=== PATIENT | female | born 1965 | race Caucasian/White ===

== ENCOUNTER 2019-08-13 10:16 | Emergency (ER) | payer MEDICAID ==
[~2019-08-13] VITALS: Ht 165.1 cm; Wt 67.0 kg
[~2019-08-13 10:16] MED LIST: FERR325T18 PO; IBUP-1902 PO; LITHIUM; LORA-446 PO; MULT-750 PO; OLAN5TAB9 PO; POLY17PO5 PO; RESPIRADOL; TRAMADOL; [UNRECOGNIZED DRUG - OTHER]
--- NOTE | 2019-08-13 10:54 | NUR ---
PT AMBULATORY TO ROOM 4 W/ C/O BEING TOLD TO TAKE MIRALAX BUT STATES SHE WON'T DRINK WATER. DENIES N/V. LAST BM TODAY. NO C/O ABD PAIN. PT RESTING ON GURNEY. NADN. VSS. HR NOTED TO BE 119.
[2019-08-13] MEDS ORDERED: SODIUM CHLORIDE FLUSH 10ML SYR IVF ONE (11:30)
[2019-08-13] MEDS ORDERED: SODIUM CHLORIDE 0.9% 1,000ML IVBOLUS ONE (11:30)
--- NOTE | 2019-08-13 11:37 | NUR ---
PT RESTING ON GURNEY. NADN. CRUZ.
[2019-08-13 11:44] LABS: BASOPHILS # (AUTO) 0.05 x10^3/uL (0-0.1); BASOPHILS % (AUTO) 1 % (0-1); EOSINOPHILS # (AUTO) 0.01 x10^3/uL (0-0.4); EOSINOPHILS % (AUTO) 0 % (1-7); LYMPHOCYTES # (AUTO) 1.56 x10^3/uL (1-3.4); LYMPHOCYTES % (AUTO) 21 % (22-44); MD NO; MEAN CORPUSCULAR HEMOGLOBIN 25.5 pg (27.0-34.8); MEAN CORPUSCULAR HGB CONC 31.6 g/dL (32.4-35.8); MEAN CORPUSCULAR VOLUME 80.8 fL (80-100); MEAN PLATELET VOLUME 6.8 fL (7.4-10.4); MONOCYTES # (AUTO) 0.48 x10^3/uL (0.2-0.8); MONOCYTES % (AUTO) 6 % (2-9); NEUTROPHILS # (AUTO) 5.45 x10^3/uL (1.8-6.8); NEUTROPHILS % (AUTO) 72 % (42-75); PLATELET COUNT 417 x10^3/uL (130-400); RED BLOOD COUNT 4.88 x10^6/uL (3.82-5.3); RED CELL DISTRIBUTION WIDTH 15.2 % (9.6-15.2)
[2019-08-13 11:53] LABS: INTERNATIONAL NORMALIZED RATIO 1.02 (0.93-1.1); PROTHROMBIN TIME 10.7 Seconds (9.6-11.5)
[2019-08-13 11:57] LABS: ALANINE AMINOTRANSFERASE 28 U/L (12-78); ALBUMIN 3.8 g/dL (3.4-5.0); ANION GAP 9 mmol/L (5-15); CALCIUM 9.5 mg/dL (8.5-10.1); CHLORIDE 104 mmol/L (98-107); CREATININE 0.69 mg/dL (0.55-1.02); MICROSCOPIC INDICATED
[2019-08-13 11:59] LABS: ALKALINE PHOSPHATASE 108 U/L (45-117); TOTAL PROTEIN 8.2 g/dL (6.4-8.2)
[2019-08-13 12:08] LABS: CULTURE INDICATED? YES
[2019-08-13 12:24] VITALS: BP 160/93
--- NOTE | 2019-08-13 12:24 | NUR ---
PT CHART REVIEWED AND PLACED FOR RECHECK.
--- NOTE | 2019-08-13 12:24 | NUR ---
PT RESTING ON GURNEY. NADN. CRUZ.
== END 2019-08-13 12:59 | disposition home or self-care (01) ==
LOC: ED 10:38
DX: R10.84 Generalized abdominal pain (principal)
CPT/HCPCS: 36415; 74021; 80053; 81001; 83605; 83690; 85025; 85610; 87086; 99284; J7030

== ENCOUNTER 2019-09-07 09:39 | Emergency (ER) | payer MEDICAID ==
[~2019-09-07] VITALS: Ht 165.1 cm; Wt 75.0 kg
--- NOTE | 2019-09-07 09:58 | NUR ---
PT BIBA FOR C/O CONSTIPATION, LBM PER EMS WAS 4-5 DAYS AGO, HOWEVER PT IS REPORTING TO EDPA THAT LMB WAS YESTERDAY. PT DENIES PAIN AT THIS TIME. PT REPORTS EMESIS X 1 A FEW DAYS AGO, HOWEVER NO N/V AT THIS TIME. ABD IS SOFT, NON-DISTENDED, BOWEL SOUNDS PRESENT (NORMOACTIVE). PT A&OX4, RESPS EVEN AND UNLABORED, CALM AND COOPERATIVE. EDPA MECHELLE AT BEDSIDE FOR INITIAL ASSESSMENT.
--- NOTE | 2019-09-07 10:19 | NUR ---
PT IN RADIOLOGY AT THIS TIME.
[2019-09-07 10:46] VITALS: BP 142/88
--- NOTE | 2019-09-07 10:47 | NUR ---
PT INSTRUCTED TO PROVIDE CLEAN CATCH UA, ATTEMPTED BUT WAS UNSUCCESSFUL WITH VOIDING IN CUP IN BATHROOM.
[2019-09-07 10:48] LABS: BASOPHILS # (AUTO) 0.05 x10^3/uL (0-0.1); BASOPHILS % (AUTO) 1 % (0-1); EOSINOPHILS # (AUTO) 0.03 x10^3/uL (0-0.4); EOSINOPHILS % (AUTO) 1 % (1-7); LYMPHOCYTES # (AUTO) 1.44 x10^3/uL (1-3.4); LYMPHOCYTES % (AUTO) 32 % (22-44); MD NO; MEAN CORPUSCULAR HEMOGLOBIN 25.4 pg (27.0-34.8); MEAN CORPUSCULAR HGB CONC 31.8 g/dL (32.4-35.8); MEAN CORPUSCULAR VOLUME 79.7 fL (80-100); MONOCYTES # (AUTO) 0.44 x10^3/uL (0.2-0.8); MONOCYTES % (AUTO) 10 % (2-9); NEUTROPHILS # (AUTO) 2.57 x10^3/uL (1.8-6.8); NEUTROPHILS % (AUTO) 57 % (42-75); PLATELET COUNT 327 x10^3/uL (130-400); RED BLOOD COUNT 5.29 x10^6/uL (3.82-5.3); RED CELL DISTRIBUTION WIDTH 16.1 % (9.6-15.2)
[2019-09-07 11:04] LABS: ALBUMIN 3.4 g/dL (3.4-5.0); ANION GAP 8 mmol/L (5-15); CALCIUM 9.1 mg/dL (8.5-10.1); CHLORIDE 106 mmol/L (98-107)
[2019-09-07 11:08] LABS: ALANINE AMINOTRANSFERASE 26 U/L (12-78); ALKALINE PHOSPHATASE 98 U/L (45-117); BILIRUBIN,TOTAL 0.7 mg/dL (0.2-1.0); CREATININE 0.73 mg/dL (0.55-1.02); TOTAL PROTEIN 7.3 g/dL (6.4-8.2)
--- NOTE | 2019-09-07 11:12 | NUR ---
REPORT TO BREAK BÁRBARA RAPP. KHRIS MIN NOTIFIED PT WAS UNABLE TO PROVIDE CLEAN CATCH UA.
--- NOTE | 2019-09-07 11:22 | NUR ---
BREAK RN: PT LAYING ON GURNEY AWAKE & COMFORTABLE, NAD, AWAITING URINE SAMPLE/UA CUP AT BS- PA IMANI AWARE, COMFORT MEASURES PROVIDED, CALL LIGHT WITHIN REACH.
--- NOTE | 2019-09-07 11:39 | NUR ---
Patient given discharge instructions and they have confirmed that they understand the instructions. Patient ambulatory with steady gait.
== END 2019-09-07 11:40 | disposition home or self-care (01) ==
LOC: ED 11:30
DX: K59.00 Constipation, unspecified (principal)
CPT/HCPCS: 36415; 74021; 80053; 85025; 99284

== ENCOUNTER 2020-12-07 00:16 | Inpatient (IN) | payer MEDICAID ==
[~2020-12-07] VITALS: Ht 165.1 cm; Wt 70.4 kg
[~2020-12-07 00:16] MED LIST changes: +MULT-482 PO; -MULT-750 PO
[2020-12-07] MEDS ORDERED: ONDANSETRON ODT 4 MG PO PRN (00:30)
[2020-12-07] MEDS ORDERED: POLYETHYLENE GLYCOL 17 GM PACKET PO PRN (00:30)
[2020-12-07] MEDS ORDERED: ACETAMINOPHEN 325 MG TABLET PO PRN (00:30)
[2020-12-07] MEDS ORDERED: DOCUSATE 100 MG CAPSULE PO PRN (00:30)
[2020-12-07] MEDS ORDERED: HALOPERIDOL 5 MG/ML IM PRN (01:00)
[2020-12-07] MEDS ORDERED: LORazepam 2 MG/ML, 1ML IM PRN (01:00)
[2020-12-07] MEDS ORDERED: DIPHENHYDRAMINE 50 MG/ML, 1ML IM ONE (01:00)
[2020-12-07 02:59] VITALS: BP 122/61
[2020-12-07] MEDS ORDERED: PLEASE ENTER HEIGHT AND WEIGHT MC SCH (03:30)
[2020-12-07] MEDS ORDERED: PALI156D IM (04:42)
[2020-12-07] MEDS ORDERED: DIPHENHYDRAMINE 50 MG/ML, 1ML IM PRN (07:30)
[2020-12-07 07:32] VITALS: BP 152/88
[2020-12-07] MEDS ORDERED: PALI234D IM (09:23)
[2020-12-07] MEDS ORDERED: PALIPERIDONE PALMITATE 234 MG/1.5 ML IM SCH (11:00)
[2020-12-07] MEDS ORDERED: PALIPERIDONE PALMITATE 156 MG/ML IM ONE (11:00)
[2020-12-07 17:26] LABS: ANION GAP 6 mmol/L (5-15); CALCIUM 8.3 mg/dL (8.5-10.1); CHLORIDE 109 mmol/L (98-107); CREATININE 0.51 mg/dL (0.55-1.02)
[2020-12-07 19:10] VITALS: BP 134/75
[2020-12-08 06:40] LABS: CHOL/HDL RATIO 2.3
[2020-12-08 07:04] VITALS: BP 129/83
[2020-12-08] MEDS: FERROUS GLUCONATE 324 MG TABLET PO SCH ×2 (08:16→17:38)
[2020-12-08] MEDS: LORazepam 1MG TABLET PO PRN (08:41)
[2020-12-08] MEDS: HALOPERIDOL 5 MG TABLET PO PRN (08:56)
[2020-12-08] MEDS: DIPHENHYDRAMINE 50 MG CAPSULE PO PRN (08:56)
[2020-12-08 13:03] LABS: OCCULT BLOOD POSITIVE (NEGATIVE)
[2020-12-08 15:06] VITALS: BP 110/70
[2020-12-08 19:36] VITALS: BP 149/85
[2020-12-09 07:03] LABS: BASOPHILS % (AUTO) 1 % (0-1); EOSINOPHILS % (AUTO) 2 % (1-7); LYMPHOCYTES % (AUTO) 29 % (22-44); MEAN CORPUSCULAR HEMOGLOBIN 19.7 pg (27.0-34.8); MEAN CORPUSCULAR HGB CONC 30.4 g/dL (32.4-35.8); MEAN PLATELET VOLUME 6.1 fL (7.4-10.4); MONOCYTES % (AUTO) 10 % (2-9); NEUTROPHILS % (AUTO) 58 % (42-75); PLATELET COUNT 369 x10^3/uL (130-400); RED BLOOD COUNT 3.99 x10^6/uL (3.82-5.3); RED CELL DISTRIBUTION WIDTH 19.5 % (9.6-15.2)
[2020-12-09 07:13] LABS: CALCIUM 8.1 mg/dL (8.5-10.1); CREATININE 0.59 mg/dL (0.55-1.02)
[2020-12-09 07:18] LABS: ANION GAP 6 mmol/L (5-15); CHLORIDE 107 mmol/L (98-107)
[2020-12-09 07:19] LABS: ANISOCYTOSIS 2+; MD MORPH REVIEW ONLY; MICROCYTOSIS 2+
[2020-12-09 07:20] LABS: OVALOCYTES 1+; POLYCHROMASIA 1+; TEAR DROPS 1+
[2020-12-09 07:23] LABS: <PLATELET ESTIMATE> INCREASED; <PLT MORPHOLOGY> NORMAL PLT MORPH
[2020-12-09] MEDS: FERROUS GLUCONATE 324 MG TABLET PO SCH ×2 (07:37→17:26)
[2020-12-09 07:41] VITALS: BP 99/66
[2020-12-09 08:10] VITALS: BP 124/88
[2020-12-09] MEDS: DIPHENHYDRAMINE 50 MG CAPSULE PO PRN (13:31)
[2020-12-09] MEDS: LORazepam 1MG TABLET PO PRN ×2 (13:31→20:26)
[2020-12-09] MEDS ORDERED: MOVIPREP POWDER 1 PREP KIT PO ONE (17:30)
[2020-12-09 19:43] VITALS: BP 122/83
[2020-12-10] MEDS: HALOPERIDOL 5 MG TABLET PO PRN (02:44)
[2020-12-10 07:31] VITALS: BP 117/73
[2020-12-10] MEDS: FERROUS GLUCONATE 324 MG TABLET PO SCH (08:50)
[2020-12-10] MEDS ORDERED: FERR324T23 PO (12:56)
== END 2020-12-10 13:51 | disposition home or self-care (01) | DRG 750 ==
LOC: 3E 02:47
PROVIDERS: ADMIT Psychiatry & Neurology Psychosomatic Medicine; ATTEND Psychiatry & Neurology Psychosomatic Medicine
DX: F25.0 Schizoaffective disorder, bipolar type (principal); D50.9 Iron deficiency anemia, unspecified; F17.210 Nicotine dependence, cigarettes, uncomplicated; F41.9 Anxiety disorder, unspecified; G89.29 Other chronic pain
CPT/HCPCS: 36415; 71045; 80048; 80061; 82272; 82728; 83540; 83550; 84466; 85014; 85018; 85025; 93005; J1200; J1630; J2060; J2426

== ENCOUNTER 2021-05-01 10:02 | Observation (INO) | payer MEDICAID ==
[~2021-05-01] VITALS: Ht 165.1 cm; Wt 85.5 kg
[~2021-05-01 10:02] MED LIST changes: +FERR324T23 PO; +OLAN5TAB69 PO; -OLAN5TAB9 PO; +PALI156D IM; +PALI234D IM
--- NOTE | 2021-05-01 10:15 | NUR ---
[facility] SODIUM THIS AM OF 122. PT WHEELCHAIR BOUND AT BASELINE BUT ABLE TO AMBULATE A FEW STEPS WITH ASSISTANCE. PT PLACED ON CARDIAC, NIBP, AND O2 MONITORING. BEDSIDE GLUCOSE PERFORMED.
[2021-05-01] MEDS ORDERED: SODIUM CHLORIDE FLUSH 10ML SYR IVF ONE (10:30)
[2021-05-01 10:47] LABS: MICROSCOPIC AUTO
[2021-05-01 11:08] LABS: BASOPHILS % (AUTO) 1 % (0-1); EOSINOPHILS % (AUTO) 1 % (1-7); LYMPHOCYTES % (AUTO) 19 % (22-44); MEAN CORPUSCULAR HEMOGLOBIN 19.7 pg (27.0-34.8); MEAN CORPUSCULAR HGB CONC 31.5 g/dL (32.4-35.8); MEAN PLATELET VOLUME 5.6 fL (7.4-10.4); MONOCYTES % (AUTO) 8 % (2-9); NEUTROPHILS % (AUTO) 72 % (42-75); PLATELET COUNT 402 x10^3/uL (130-400); RED BLOOD COUNT 4.76 x10^6/uL (3.82-5.3)
[2021-05-01 11:18] LABS: ALANINE AMINOTRANSFERASE 16 U/L (12-78); ALBUMIN 3.4 g/dL (3.4-5.0); ANION GAP 9 mmol/L (5-15); CALCIUM 9.7 mg/dL (8.5-10.1); CHLORIDE 93 mmol/L (98-107)
[2021-05-01 11:21] LABS: ALKALINE PHOSPHATASE 114 U/L (45-117); BILIRUBIN,TOTAL 0.3 mg/dL (0.2-1.0); CREATININE 0.47 mg/dL (0.55-1.02); TOTAL PROTEIN 7.1 g/dL (6.4-8.2)
[2021-05-01 11:42] LABS: ANISOCYTOSIS 2+; HYPOCHROMIA 1+; MICROCYTOSIS 2+; OVALOCYTES 1+; POLYCHROMASIA 1+; TEAR DROPS 1+
[2021-05-01 11:43] LABS: <PLATELET ESTIMATE> INCREASED; <PLT MORPHOLOGY> NORMAL PLT MORPH
--- NOTE | 2021-05-01 11:47 | NUR ---
TASK RN: JOHN PLACED THEM MEDICATED PER HARRIET ARZATE AT 100/HR ON PUMP
[2021-05-01] MEDS ORDERED: SODIUM CHLORIDE 0.9% 1,000 ML IV SCH (12:00)
--- NOTE | 2021-05-01 13:25 | NUR ---
OPT RESTING COMFORTABLY IN BED. PT AWARE OF POC AT THIS TIME. AWAITING ADMITTING ORDERS.
[2021-05-01] MEDS ORDERED: MELATONIN 5 MG TABLET PO PRN (15:00)
[2021-05-01] MEDS ORDERED: BACLOFEN 10 MG TABLET PO PRN (15:00)
[2021-05-01] MEDS ORDERED: ACETAMINOPHEN 325 MG TABLET PO PRN (15:00)
[2021-05-01] MEDS ORDERED: POLYETHYLENE GLYCOL 17 GM PACKET PO PRN (15:00)
[2021-05-01] MEDS ORDERED: ONDANSETRON ODT 4 MG PO PRN (15:00)
[2021-05-01] MEDS ORDERED: ENOXAPARIN 40 MG/0.4 ML SQ SCH (15:00)
[2021-05-01] MEDS ORDERED: DOCUSATE 100 MG CAPSULE PO PRN (15:00)
[2021-05-01 16:18] VITALS: BP 141/85
[2021-05-01] MEDS: FERROUS GLUCONATE 324 MG TABLET PO SCH (16:41)
[2021-05-01] MEDS ORDERED: OXCA600T10 PO (17:04)
[2021-05-01] MEDS ORDERED: FAMO-79 PO (17:04)
[2021-05-01] MEDS ORDERED: ONDA4TAB7 PO (17:04)
[2021-05-01] MEDS ORDERED: CALC300T5 PO (17:04)
[2021-05-01] MEDS ORDERED: RISP2TAB11 PO (17:04)
[2021-05-01] MEDS ORDERED: FERR324T5 PO (17:04)
[2021-05-01] MEDS ORDERED: POLY510P31 PO (17:04)
[2021-05-01 19:28] VITALS: BP 117/75
[2021-05-01] MEDS: SODIUM CHLORIDE 0.9% 1,000 ML IV SCH (21:04)
[2021-05-01] MEDS: SODIUM CHLORIDE FLUSH 10ML SYR IVF SCH (21:04)
[2021-05-02 00:58] VITALS: BP 105/66
[2021-05-02 05:48] LABS: BASOPHILS % (AUTO) 0 % (0-1); EOSINOPHILS % (AUTO) 1 % (1-7); LYMPHOCYTES % (AUTO) 9 % (22-44); MEAN CORPUSCULAR HEMOGLOBIN 20.2 pg (27.0-34.8); MEAN CORPUSCULAR HGB CONC 31.6 g/dL (32.4-35.8); MEAN PLATELET VOLUME 8.2 fL (7.4-10.4); MONOCYTES % (AUTO) 9 % (2-9); NEUTROPHILS % (AUTO) 82 % (42-75); PLATELET COUNT 403 x10^3/uL (130-400); RED BLOOD COUNT 4.77 x10^6/uL (3.82-5.3); RED CELL DISTRIBUTION WIDTH 26.2 % (9.6-15.2)
[2021-05-02 06:02] LABS: CHLORIDE 103 mmol/L (98-107)
[2021-05-02 06:27] LABS: ANION GAP 8 mmol/L (5-15); CALCIUM 8.8 mg/dL (8.5-10.1); CREATININE 0.51 mg/dL (0.55-1.02)
[2021-05-02 07:00] LABS: ANISOCYTOSIS 2+; HYPOCHROMIA 1+; MICROCYTOSIS 1+
[2021-05-02 07:01] LABS: <PLATELET ESTIMATE> INCREASED; <PLT MORPHOLOGY> NORMAL PLT MORPH; OVALOCYTES 2+
[2021-05-02 07:06] VITALS: BP 107/69
[2021-05-02] MEDS: SODIUM CHLORIDE 0.9% 1,000 ML IV SCH (08:00)
[2021-05-02] MEDS: SODIUM CHLORIDE FLUSH 10ML SYR IVF SCH (09:00)
[2021-05-02] MEDS: FERROUS GLUCONATE 324 MG TABLET PO SCH (09:03)
== END 2021-05-02 11:30 | disposition home or self-care (01) ==
LOC: ED 10:54 → INTOOBSV 11:40 → EDIP 11:40 → 4EST 15:37
PROVIDERS: ADMIT Internal Medicine; ATTEND Hospitalist
DX: E87.1 Hypo-osmolality and hyponatremia (principal); R19.7 Diarrhea, unspecified; D64.9 Anemia, unspecified; G93.40 Encephalopathy, unspecified; F31.9 Bipolar disorder, unspecified; F20.9 Schizophrenia, unspecified; Z79.899 Other long term (current) drug therapy
CPT/HCPCS: 36415; 80048; 80053; 81001; 82962; 83735; 84443; 85025; 87086; 96360; 96361; 96372; 97162; 99284; G0378; J1650; J7030

== ENCOUNTER 2021-05-06 23:51 | Inpatient (IN) | payer MEDICAID ==
[~2021-05-06] VITALS: Ht 162.6 cm; Wt 71.2 kg
[~2021-05-06 23:51] MED LIST changes: +CALC300T5 PO; +FAMO-79 PO; +FERR324T5 PO; +ONDA4TAB7 PO; +OXCA600T10 PO; +POLY510P31 PO; +RISP2TAB11 PO
[2021-05-07] MEDS ORDERED: ONDANSETRON 2MG/ML, 2ML ONE (00:28)
[2021-05-07] MEDS ORDERED: PROMETHAZINE 25 MG/ML, 1ML ONE (00:28)
[2021-05-07] MEDS ORDERED: ONDANSETRON 2MG/ML, 2ML IVPush ONE (00:30)
[2021-05-07] MEDS ORDERED: SODIUM CHLORIDE FLUSH 10ML SYR IVF ONE (00:30)
[2021-05-07] MEDS ORDERED: PROMETHAZINE 25 MG/ML, 1ML IM ONE (00:30)
[2021-05-07] MEDS ORDERED: SODIUM CHLORIDE 0.9% 1,000ML IVBOLUS ONE (00:30)
--- NOTE | 2021-05-07 00:34 | NUR ---
PIV PLACED, MEDS GIVEN PER ORDER, FLUIDS INFUSING. PT TOLERATING WELL, NADN.
[2021-05-07 01:03] LABS: MEAN CORPUSCULAR HEMOGLOBIN 20.5 pg (27.0-34.8); MEAN CORPUSCULAR HGB CONC 32.3 g/dL (32.4-35.8); MEAN PLATELET VOLUME 8.1 fL (7.4-10.4); PLATELET COUNT 266 x10^3/uL (130-400); RED BLOOD COUNT 4.11 x10^6/uL (3.82-5.3); RED CELL DISTRIBUTION WIDTH 26.5 % (9.6-15.2)
[2021-05-07 01:04] LABS: ALBUMIN 2.4 g/dL (3.4-5.0); CALCIUM 7.8 mg/dL (8.5-10.1); CHLORIDE 84 mmol/L (98-107)
[2021-05-07 01:15] LABS: ANION GAP 11 mmol/L (5-15)
[2021-05-07 01:18] LABS: BILIRUBIN,TOTAL 0.7 mg/dL (0.2-1.0); CREATININE 0.48 mg/dL (0.55-1.02)
[2021-05-07 01:19] LABS: ALANINE AMINOTRANSFERASE 14 U/L (12-78); ALKALINE PHOSPHATASE 91 U/L (45-117); TOTAL PROTEIN 6.2 g/dL (6.4-8.2); TROPONIN I < 0.015 ng/mL (0.000-0.045)
[2021-05-07 01:26] LABS: ACANTHOCYTES 1+; ANISOCYTOSIS 2+; BAND#(MANUAL) 1.54 x10^3/uL; BANDS%(MANUAL) 20 % (0-7); LYMPH#(MANUAL) 0.31 x10^3/uL (1-3.4); LYMPHS% (MANUAL) 4 % (22-44); MONOS#(MANUAL) 0.39 x10^3/uL (0.3-2.7); MONOS% (MANUAL) 5 % (2-9); OVALOCYTES 2+; SEG#(MANUAL) 5.47 x10^3/uL (1.8-6.8); SEGS% (MANUAL) 71 % (42-75)
[2021-05-07 01:27] LABS: HYPOCHROMIA 2+; MICROCYTOSIS 2+; PMNS WITH VACUOLES 1+
[2021-05-07 01:28] LABS: <PLATELET ESTIMATE> ADEQUATE; <PLT MORPHOLOGY> NORMAL PLT MORPH; TEAR DROPS 1+
[2021-05-07] MEDS: SODIUM CHLORIDE 0.9% 1,000 ML IV ONE ×2 (01:30→03:22)
--- NOTE | 2021-05-07 01:34 | NUR ---
[facility] at bedside for eval
--- NOTE | 2021-05-07 01:34 | NUR ---
MD Brown aware of hyponatremia, orders received. pt updated with poc to admit
[2021-05-07] MEDS ORDERED: LABETALOL 5MG/ML, 20ML IVPush PRN (02:00)
[2021-05-07] MEDS ORDERED: ACETAMINOPHEN 325 MG TABLET PO PRN (02:00)
[2021-05-07] MEDS ORDERED: SODIUM CHLORIDE 3% 500 ML IV SCH ×4 (02:00→04:30)
[2021-05-07] MEDS ORDERED: POLYETHYLENE GLYCOL 17 GM PACKET PO PRN (02:00)
[2021-05-07] MEDS ORDERED: ONDANSETRON 2MG/ML, 2ML IVPush PRN (02:00)
[2021-05-07] MEDS ORDERED: MELATONIN 5 MG TABLET PO PRN (02:00)
[2021-05-07] MEDS ORDERED: OXYcodone IR 5MG TABLET PO PRN (02:00)
[2021-05-07] MEDS ORDERED: CEFTRIAXONE 1,000 MG in DEXTROSE 5% 50 ML IVPB ONE (02:00)
[2021-05-07] MEDS ORDERED: FUROSEMIDE 20 MG/2 ML IV ONE ×2 (02:00→06:00)
[2021-05-07] MEDS ORDERED: FUROSEMIDE 20 MG/2 ML ONE (02:05)
--- NOTE | 2021-05-07 02:20 | NUR ---
admit orders received, meds given per order, fluids infusing. vss, all monitors attached, nsr.
[2021-05-07 03:16] LABS: MEAN CORPUSCULAR HEMOGLOBIN 20.2 pg (27.0-34.8); MEAN PLATELET VOLUME 8.2 fL (7.4-10.4); PLATELET COUNT 293 x10^3/uL (130-400); RED BLOOD COUNT 4.92 x10^6/uL (3.82-5.3); RED CELL DISTRIBUTION WIDTH 27.2 % (9.6-15.2)
[2021-05-07] MEDS ORDERED: ENOXAPARIN 40 MG/0.4 ML ONE (03:16)
[2021-05-07] MEDS: ENOXAPARIN 40 MG/0.4 ML SQ SCH (03:22)
[2021-05-07 04:12] LABS: ANISOCYTOSIS 2+; BAND#(MANUAL) 1.57 x10^3/uL; BANDS%(MANUAL) 18 % (0-7); HYPOCHROMIA 1+; LYMPH#(MANUAL) 0.17 x10^3/uL (1-3.4); LYMPHS% (MANUAL) 2 % (22-44); MICROCYTOSIS 2+; MONOS#(MANUAL) 0.52 x10^3/uL (0.3-2.7); MONOS% (MANUAL) 6 % (2-9); OVALOCYTES 2+; SEG#(MANUAL) 6.44 x10^3/uL (1.8-6.8); SEGS% (MANUAL) 74 % (42-75)
[2021-05-07 04:13] LABS: <PLATELET ESTIMATE> ADEQUATE; <PLT MORPHOLOGY> NORMAL PLT MORPH; ACANTHOCYTES 1+; PMNS WITH VACUOLES 1+; SMUDGE CELLS 1+; TEAR DROPS 1+
--- NOTE | 2021-05-07 04:15 | NUR ---
CLARIFIED WITH ANGEL MEDEROS ABOUT 3% SALINE ORDER. KAYLIE mederos SAID TO HOLD OFF ON ADMINISTERING SOLUTION UNTIL ANOTHER BMP IS DRAWN TO SEE RESULTS FIRST Addendum: 05/07/21 at 0457 by [email or web address] MD TO PLACE ORDER FOR BMP LAB DRAW
[2021-05-07 04:41] LABS: ANION GAP 9 mmol/L (5-15); CALCIUM 8.5 mg/dL (8.5-10.1); CHLORIDE 89 mmol/L (98-107)
[2021-05-07] MEDS ORDERED: POTASSIUM CHLORIDE 20 MEQ TAB.ER.PRT PO ONE (06:00)
[2021-05-07 06:33] LABS: ANION GAP 8 mmol/L (5-15); CALCIUM 8.5 mg/dL (8.5-10.1); CHLORIDE 91 mmol/L (98-107)
[2021-05-07 06:34] LABS: CREATININE 0.44 mg/dL (0.55-1.02)
[2021-05-07 07:25] VITALS: BP 116/75
[2021-05-07] MEDS: FAMOTIDINE 20 MG/2 ML IVPush SCH ×2 (08:02→20:26)
[2021-05-07 09:16] LABS: MEAN CORPUSCULAR HEMOGLOBIN 20.5 pg (27.0-34.8); MEAN CORPUSCULAR HGB CONC 31.6 g/dL (32.4-35.8); MEAN PLATELET VOLUME 8.2 fL (7.4-10.4); PLATELET COUNT 315 x10^3/uL (130-400); RED BLOOD COUNT 5.13 x10^6/uL (3.82-5.3)
[2021-05-07 09:28] LABS: ANION GAP 10 mmol/L (5-15); CALCIUM 9.3 mg/dL (8.5-10.1); CHLORIDE 92 mmol/L (98-107)
[2021-05-07 09:29] LABS: CREATININE 0.51 mg/dL (0.55-1.02)
[2021-05-07 09:44] LABS: ACANTHOCYTES 1+; ANISOCYTOSIS 2+; BAND#(MANUAL) 0.05 x10^3/uL; BANDS%(MANUAL) 1 % (0-7); HYPOCHROMIA 1+; LYMPH#(MANUAL) 0.96 x10^3/uL (1-3.4); LYMPHS% (MANUAL) 20 % (22-44); MICROCYTOSIS 2+; MONOS#(MANUAL) 0.24 x10^3/uL (0.3-2.7); MONOS% (MANUAL) 5 % (2-9); OVALOCYTES 2+; SEG#(MANUAL) 3.55 x10^3/uL (1.8-6.8); SEGS% (MANUAL) 74 % (42-75)
[2021-05-07 09:45] LABS: <PLATELET ESTIMATE> ADEQUATE; <PLT MORPHOLOGY> NORMAL PLT MORPH; TEAR DROPS 1+
[2021-05-07 12:29] LABS: MEAN CORPUSCULAR HEMOGLOBIN 20.5 pg (27.0-34.8); MEAN CORPUSCULAR HGB CONC 31.9 g/dL (32.4-35.8); MEAN PLATELET VOLUME 8.1 fL (7.4-10.4); PLATELET COUNT 308 x10^3/uL (130-400); RED BLOOD COUNT 4.81 x10^6/uL (3.82-5.3); RED CELL DISTRIBUTION WIDTH 26.7 % (9.6-15.2)
[2021-05-07 12:34] LABS: ANION GAP 11 mmol/L (5-15); CHLORIDE 94 mmol/L (98-107); CREATININE 0.43 mg/dL (0.55-1.02)
[2021-05-07 13:06] VITALS: BP 104/71
[2021-05-07 13:06] LABS: BAND#(MANUAL) 0.16 x10^3/uL; BANDS%(MANUAL) 3 % (0-7); LYMPH#(MANUAL) 0.95 x10^3/uL (1-3.4); LYMPHS% (MANUAL) 18 % (22-44); MONOS#(MANUAL) 0.21 x10^3/uL (0.3-2.7); MONOS% (MANUAL) 4 % (2-9); SEG#(MANUAL) 3.98 x10^3/uL (1.8-6.8); SEGS% (MANUAL) 75 % (42-75)
[2021-05-07 13:07] LABS: ACANTHOCYTES 1+; ANISOCYTOSIS 2+; HYPOCHROMIA 1+; MICROCYTOSIS 2+; OVALOCYTES 2+; TEAR DROPS 1+
[2021-05-07 13:08] LABS: <PLATELET ESTIMATE> ADEQUATE; <PLT MORPHOLOGY> NORMAL PLT MORPH
[2021-05-07 15:45] LABS: MEAN CORPUSCULAR HEMOGLOBIN 20.6 pg (27.0-34.8); MEAN CORPUSCULAR HGB CONC 32.2 g/dL (32.4-35.8); MEAN PLATELET VOLUME 8.1 fL (7.4-10.4); PLATELET COUNT 320 x10^3/uL (130-400); RED CELL DISTRIBUTION WIDTH 27.2 % (9.6-15.2)
[2021-05-07 15:56] LABS: ANION GAP 10 mmol/L (5-15); CALCIUM 8.7 mg/dL (8.5-10.1); CHLORIDE 94 mmol/L (98-107); CREATININE 0.65 mg/dL (0.55-1.02)
[2021-05-07 16:08] LABS: BAND#(MANUAL) 0.17 x10^3/uL; BANDS%(MANUAL) 3 % (0-7); BASOS#(MANUAL) 0.06 x10^3/uL (0-0.1); BASOS% (MANUAL) 1 % (0-1); LYMPH#(MANUAL) 1.23 x10^3/uL (1-3.4); LYMPHS% (MANUAL) 22 % (22-44); MONOS#(MANUAL) 0.39 x10^3/uL (0.3-2.7); MONOS% (MANUAL) 7 % (2-9); REACTIVE LYMPHS # (MANUAL) 0.06 x10^3/uL (0-0); REACTIVE LYMPHS % (MANUAL) 1 % (0-0); SEGS% (MANUAL) 66 % (42-75)
[2021-05-07 16:10] LABS: ANISOCYTOSIS 2+; MICROCYTOSIS 2+
[2021-05-07 16:11] LABS: <PLATELET ESTIMATE> ADEQUATE; HYPOCHROMIA 1+; OVALOCYTES 2+; TEAR DROPS 1+
[2021-05-07 16:13] LABS: <PLT MORPHOLOGY> NORMAL PLT MORPH
[2021-05-07 19:26] VITALS: BP 100/69
[2021-05-07 20:26] LABS: ANION GAP 7 mmol/L (5-15); CALCIUM 8.5 mg/dL (8.5-10.1); CHLORIDE 93 mmol/L (98-107); CREATININE 0.61 mg/dL (0.55-1.02)
[2021-05-08 00:55] VITALS: BP 102/69
[2021-05-08 01:06] LABS: MICROSCOPIC INDICATED
[2021-05-08 01:14] LABS: POTASSIUM,URINE RANDOM 22 mmol/L; SODIUM,URINE RANDOM 8 mmol/L
[2021-05-08 01:16] LABS: CHLORIDE,URINE RANDOM < 10 mmol/L
[2021-05-08] MEDS: CALCIUM CARBONATE 500 MG TAB.CHEW PO SCH ×3 (01:30→11:23)
[2021-05-08] MEDS: ENOXAPARIN 40 MG/0.4 ML SQ SCH (01:58)
[2021-05-08] MEDS ORDERED: CEFTRIAXONE 2 GM in DEXTROSE 5% 50 ML IVPB SCH (05:00)
[2021-05-08 06:05] LABS: ALANINE AMINOTRANSFERASE 15 U/L (12-78); ALBUMIN 2.7 g/dL (3.4-5.0); ANION GAP 10 mmol/L (5-15); CALCIUM 9.5 mg/dL (8.5-10.1); CHLORIDE 94 mmol/L (98-107)
[2021-05-08 06:07] LABS: ALKALINE PHOSPHATASE 90 U/L (45-117); BILIRUBIN,TOTAL 0.1 mg/dL (0.2-1.0); TOTAL PROTEIN 6.6 g/dL (6.4-8.2)
[2021-05-08 06:17] LABS: MEAN CORPUSCULAR HEMOGLOBIN 20.6 pg (27.0-34.8); MEAN CORPUSCULAR HGB CONC 32.2 g/dL (32.4-35.8); MEAN PLATELET VOLUME 8.3 fL (7.4-10.4); PLATELET COUNT 335 x10^3/uL (130-400); RED BLOOD COUNT 4.58 x10^6/uL (3.82-5.3); RED CELL DISTRIBUTION WIDTH 27.6 % (9.6-15.2)
[2021-05-08 06:46] LABS: EOS#(MANUAL) 0.11 x10^3/uL (0.0-0.4); EOS% (MANUAL) 2 % (1-7); LYMPH#(MANUAL) 1.77 x10^3/uL (1-3.4); LYMPHS% (MANUAL) 31 % (22-44); MONOS#(MANUAL) 0.91 x10^3/uL (0.3-2.7); MONOS% (MANUAL) 16 % (2-9); SEG#(MANUAL) 2.91 x10^3/uL (1.8-6.8); SEGS% (MANUAL) 51 % (42-75)
[2021-05-08 06:47] LABS: <PLATELET ESTIMATE> ADEQUATE; <PLT MORPHOLOGY> NORMAL PLT MORPH; ANISOCYTOSIS 2+; HYPOCHROMIA 1+; MICROCYTOSIS 2+; OVALOCYTES 2+; TEAR DROPS 1+
[2021-05-08 06:57] LABS: ECHINOCYTES 1+
[2021-05-08 07:09] VITALS: BP 101/72
[2021-05-08] MEDS: FAMOTIDINE 20 MG/2 ML IVPush SCH (08:49)
[2021-05-08] MEDS ORDERED: ACETAMINOPHEN 325 MG TABLET PO PRN (10:00)
[2021-05-08] MEDS ORDERED: NITR100C56 PO ×2 (11:14)
[2021-05-08] MEDS ORDERED: FERR324T23 PO (11:14)
== END 2021-05-08 11:50 | disposition home or self-care (01) | DRG 720 ==
LOC: ED 05-07 01:31 → EDIP 05-07 01:34 → 5SO 05-07 06:51
PROVIDERS: ADMIT Internal Medicine; ATTEND Internal Medicine
DX: A41.9 Sepsis, unspecified organism (principal); G93.41 Metabolic encephalopathy; E87.1 Hypo-osmolality and hyponatremia; E86.0 Dehydration; F20.9 Schizophrenia, unspecified; F31.9 Bipolar disorder, unspecified; N39.0 Urinary tract infection, site not specified; R63.1 Polydipsia; F17.210 Nicotine dependence, cigarettes, uncomplicated; Z79.899 Other long term (current) drug therapy
CPT/HCPCS: 36415; 70450; 71045; 80048; 80053; 81001; 82436; 83605; 83690; 83930; 83935; 84133; 84145; 84300; 84484; 85025; 87040; 87086; 93005; 96365; 96372; 96375; 99291; G0378; J0696; J1650; J2405; J2550; J1940; J7030

== ENCOUNTER 2021-05-17 22:03 | Inpatient (IN) | payer MEDICAID ==
[~2021-05-17] VITALS: Ht 152.4 cm; Wt 73.6 kg
[~2021-05-17 22:03] MED LIST changes: +NITR100C56 PO
--- NOTE | 2021-05-17 23:10 | NUR ---
PT HAD SMALL EPISODE OF EMESIS ON GOWN. CLOTHING CHANGED.
[2021-05-17 23:23] LABS: ALANINE AMINOTRANSFERASE 17 U/L (12-78); ALBUMIN 2.8 g/dL (3.4-5.0); CHLORIDE 81 mmol/L (98-107)
[2021-05-17 23:26] LABS: ALKALINE PHOSPHATASE 78 U/L (45-117); BILIRUBIN,TOTAL 0.6 mg/dL (0.2-1.0); CREATININE 0.36 mg/dL (0.55-1.02); TOTAL PROTEIN 6.4 g/dL (6.4-8.2)
[2021-05-17 23:28] LABS: BASOPHILS % (AUTO) 1 % (0-1); EOSINOPHILS % (AUTO) 1 % (1-7); LYMPHOCYTES % (AUTO) 30 % (22-44); MEAN CORPUSCULAR HEMOGLOBIN 20.8 pg (27.0-34.8); MEAN CORPUSCULAR HGB CONC 31.9 g/dL (32.4-35.8); MEAN PLATELET VOLUME 8.1 fL (7.4-10.4); MONOCYTES % (AUTO) 8 % (2-9); NEUTROPHILS % (AUTO) 60 % (42-75); PLATELET COUNT 403 x10^3/uL (130-400); RED BLOOD COUNT 4.34 x10^6/uL (3.82-5.3); RED CELL DISTRIBUTION WIDTH 26.9 % (9.6-15.2)
[2021-05-17 23:31] LABS: ANION GAP 12 mmol/L (5-15)
[2021-05-17 23:54] LABS: ANISOCYTOSIS 2+
[2021-05-17 23:55] LABS: HYPOCHROMIA 1+; MICROCYTOSIS 2+; OVALOCYTES 2+; TEAR DROPS 1+
[2021-05-17 23:56] LABS: <PLATELET ESTIMATE> INCREASED; <PLT MORPHOLOGY> NORMAL PLT MORPH
[2021-05-18] MEDS ORDERED: FUROSEMIDE 40 MG/4 ML IV ONE (00:30)
[2021-05-18] MEDS ORDERED: LABETALOL 5MG/ML, 20ML IVPush PRN (00:30)
[2021-05-18] MEDS ORDERED: POLYETHYLENE GLYCOL 17 GM PACKET PO PRN (00:30)
[2021-05-18] MEDS ORDERED: ACETAMINOPHEN 325 MG TABLET PO PRN (00:30)
[2021-05-18] MEDS ORDERED: SODIUM CHLORIDE 0.9% 1,000ML IVBOLUS ONE (00:30)
[2021-05-18] MEDS ORDERED: ONDANSETRON 2MG/ML, 2ML IVPush PRN (00:30)
--- NOTE | 2021-05-18 00:41 | NUR ---
TASK RN: PT RESTING IN [facility] W EYES CLOSED. EVEN/REGULAR RESPIRATIONS NOTED. SPO2/ECG MONITORING IN PLACE. NSR ON MONITOR. NO EVIDENCE OF SZ NOTED.
--- NOTE | 2021-05-18 01:17 | NUR ---
REPORT RECEIVED FROM SUSAN GRANGER
[2021-05-18] MEDS: ENOXAPARIN 40 MG/0.4 ML SQ SCH (01:23)
[2021-05-18] MEDS ORDERED: FUROSEMIDE 40 MG/4 ML ONE (01:26)
[2021-05-18] MEDS ORDERED: ENOXAPARIN 40 MG/0.4 ML ONE (01:26)
[2021-05-18 01:30] LABS: ANION GAP 9 mmol/L (5-15); CALCIUM 8.4 mg/dL (8.5-10.1); CHLORIDE 82 mmol/L (98-107); CREATININE 0.43 mg/dL (0.55-1.02)
[2021-05-18 02:04] VITALS: BP 103/70
[2021-05-18] MEDS: SODIUM CHLORIDE 1 GM TABLET PO SCH ×4 (02:20→22:22)
[2021-05-18] MEDS: MELATONIN 5 MG TABLET PO PRN (02:20)
[2021-05-18 05:43] LABS: ANION GAP 9 mmol/L (5-15); CALCIUM 8.1 mg/dL (8.5-10.1); CHLORIDE 86 mmol/L (98-107)
[2021-05-18 05:45] LABS: CREATININE 0.45 mg/dL (0.55-1.02)
[2021-05-18 07:34] VITALS: BP 95/61
[2021-05-18 09:00] LABS: ANION GAP 7 mmol/L (5-15); CALCIUM 8.5 mg/dL (8.5-10.1); CHLORIDE 86 mmol/L (98-107); CREATININE 0.37 mg/dL (0.55-1.02)
[2021-05-18] MEDS ORDERED: SODIUM CHLORIDE 3% 500 ML IV SCH ×4 (11:00→16:02)
[2021-05-18 13:43] VITALS: BP 100/65
[2021-05-18] MEDS ORDERED: FERROUS GLUCONATE 324 MG TABLET PO SCH (14:00)
[2021-05-18 21:44] VITALS: BP 100/64
[2021-05-19 00:54] VITALS: BP 90/59
[2021-05-19] MEDS: ENOXAPARIN 40 MG/0.4 ML SQ SCH (01:21)
[2021-05-19 06:32] LABS: BASOPHILS % (AUTO) 1 % (0-1); EOSINOPHILS % (AUTO) 1 % (1-7); LYMPHOCYTES % (AUTO) 23 % (22-44); MEAN CORPUSCULAR HEMOGLOBIN 21.4 pg (27.0-34.8); MEAN CORPUSCULAR HGB CONC 32.4 g/dL (32.4-35.8); MEAN PLATELET VOLUME 5.9 fL (7.4-10.4); MONOCYTES % (AUTO) 11 % (2-9); NEUTROPHILS % (AUTO) 65 % (42-75); PLATELET COUNT 395 x10^3/uL (130-400); RED BLOOD COUNT 4.52 x10^6/uL (3.82-5.3); RED CELL DISTRIBUTION WIDTH 28.5 % (9.6-15.2)
[2021-05-19 06:52] VITALS: BP 111/73
[2021-05-19] MEDS: SODIUM CHLORIDE 1 GM TABLET PO SCH (07:42)
[2021-05-19 13:41] VITALS: BP 118/66
[2021-05-19 19:14] VITALS: BP 127/84
[2021-05-19] MEDS: MELATONIN 5 MG TABLET PO PRN (20:46)
[2021-05-20 01:40] VITALS: BP 111/72
[2021-05-20] MEDS: ENOXAPARIN 40 MG/0.4 ML SQ SCH (04:51)
== END 2021-05-20 13:29 | disposition home or self-care (01) | DRG 426 ==
LOC: ED 22:30 → EDIP 05-18 00:47 → 4EST 05-18 01:45
PROVIDERS: ADMIT Internal Medicine; ATTEND Hospitalist
DX: E87.1 Hypo-osmolality and hyponatremia (principal); G93.41 Metabolic encephalopathy; W01.0XXA Fall on same level from slipping, tripping and stumbling without subsequent striking against object, initial encounter; G89.11 Acute pain due to trauma; F31.9 Bipolar disorder, unspecified; F20.9 Schizophrenia, unspecified; E66.01 Morbid (severe) obesity due to excess calories; R63.1 Polydipsia; Z87.891 Personal history of nicotine dependence; Z68.30 Body mass index [BMI] 30.0-30.9, adult; Y93.89 Activity, other specified; Y92.89 Other specified places as the place of occurrence of the external cause; Y99.8 Other external cause status
CPT/HCPCS: 36415; 80048; 80053; 83930; 83935; 84100; 84295; 85025; 96374; 99285; G0378; J1650; J1940; J7030